=== PATIENT | female | born 1950 | race Caucasian/White ===

== ENCOUNTER 2022-01-22 13:26 | Emergency (ER) | payer MEDICARE ==
[2022-01-22 14:50] LABS: HEMOGLOBIN A1C 6.7 % (<5.7)
[2022-01-22 14:53] LABS: ESTIMATED GFR 18 mL/min (>60)
== END 2022-01-22 17:14 | disposition home or self-care (01) ==
LOC: FB.ED 13:26
DX: N19 Unspecified kidney failure (principal); E11.9 Type 2 diabetes mellitus without complications; Z79.4 Long term (current) use of insulin
CPT/HCPCS: 36415; 71045; 80053; 83036; 83880; 84484; 85025; 85379; 93005; 99285